=== PATIENT | female | born 1990 | race African-American/Black ===

== ENCOUNTER 2020-04-10 13:35 | Outpatient (RCR) | payer OTHER, SELFPAY | END 2020-07-07 23:59 | disposition home or self-care (01) | LOC: ANHLAB 13:35 | PROVIDERS: Visit Provider Obstetrics & Gynecology | DX: O26.851 Spotting complicating pregnancy, first trimester (principal); Z3A.00 Weeks of gestation of pregnancy not specified | CPT/HCPCS: 36415; 84702; 86850; 86900; 86901 ==

== ENCOUNTER 2020-04-15 15:39 | Outpatient (CLI) | payer OTHER, SELFPAY ==
--- NOTE | ~2020-04-15 | US_ITS ---
EXAMINATION: US OB transvaginal EXAM DATE: 04/15/2020 16:25 INDICATION: Spotting first trimester . 1st trimester. TECHNIQUE: Pelvic obstetrical transvaginal sonogram was performed by a technologist. There are [facility] grayscale and Doppler images available for interpretation. There are no earlier studies of this gestation for comparison. FINDINGS: Uterus measures 9.0 x 4.8 x 5.7 cm. There is intrauterine gestation sac. pole with heart rate confirmed at 157 beats per minute. The 1.1 cm crown-rump length corresponds to estimated gestational age by ultrasound of 7 weeks 1 day, estimated date of confinement 12/01/2020. Yolk sac is identified. There is no sonographic evidence of subchorionic hemorrhage. The ovaries are morphol ogically normal. IMPRESSION: Early live intrauterine gestation, 7 weeks 1 day age by ultrasound. Reviewed, dictated and finalized at location A. [employer] IMPRESSION: Early live intrauterine gestation, 7 weeks 1 day age by ultrasound .
== END 2020-04-15 15:40 ==
PROVIDERS: Visit Provider Obstetrics & Gynecology
DX: O26.851 Spotting complicating pregnancy, first trimester (principal); Z3A.01 Less than 8 weeks gestation of pregnancy
CPT/HCPCS: 76817

== ENCOUNTER 2020-11-12 16:16 | Outpatient (RCR) | payer OTHER, SELFPAY ==
[2020-09-24 15:54] LABS: Basophils Percent Auto 0.2 % (0.2-1.2); Eosinophils Percent Auto 0.2 % (0-4.4); Hematocrit 32.8 % (37.0-47.0); Hemoglobin 10.4 g/dL (12.0-15.0); Immature Granulocyte Absolute 0.09 K/mm3 (0.00-0.031); Immature Granulocyte Percent A 0.8 % (0-0.5); Lymphocytes Absolute Auto 2.48 K/mm3 (0.9-3.2); Lymphocytes Percent Auto 23.3 % (18.3-44.2); Mean Corpuscular HGB Conc 31.7 g/dl (32-36); Mean Corpuscular Hemoglobin 29.5 pg (26-34); Mean Corpuscular Volume 92.9 fl (80-100); Mean Platelet Volume 9.7 fl (7.4-10.4); Monocytes Absolute Auto 0.9 K/mm3 (0.1-0.6); Monocytes Percent Auto 8.3 % (2.6-8.5); Neutrophils Absolute Auto 7.1 K/mm3 (1.3-6.7); Neutrophils Percent Auto 67.2 % (45.5-73.1); Platelet Count Result 331 k/mm3 (150-375); Red Blood Count 3.53 M/mm3 (4.2-5.4); Red Cell Distribution Width 13.1 % (11.5-14.5); White Blood Count 10.6 K/mm3 (4.5-10.0)
[2020-09-24 15:57] LABS: Add Urine Microscopic? YES; Amorphous Sediment Urine Few; Appearance Urine Cloudy (Clear); Bacteria Urine Trace /hpf; Bilirubin Urine Negative (Negative); Blood Urine 1+ (Negative); Color Urine Yellow (Yellow); Glucose Urine UA Negative (Negative); Ketones Urine Negative (Negative); Leukocyte Esterase Ur Negative LEU/UL (NEGATIVE); Mucus Urine Rare /lpf; Nitrate Urine Negative (Negative); Protein Urine 1+ mg/dL (Negative); Specific Grav Ur 1.019 (1.001-1.035); Squamous Epithelial Cell Urine Many /hpf (Few); Urobilinogen Urine Negative mg/dL (<2.0); WBC Urine 0-3 /hpf (0-3)
[2020-09-24 16:02] VITALS: BP 140/86; PULSE 95
[2020-09-24 16:04] LABS: Alanine Aminotransferase 33 U/L (4-35); Albumin Level 3.8 g/dL (3.5-5.1); Alkaline Phosphatase 163 U/L (38-126); Anion Gap 11 mmol/L (8-16); Aspartate Amino Transferase 29 U/L (14-36); Bilirubin,Total 0.3 mg/dL (0.2-1.3); Blood Urea Nitrogen 7 mg/dL (7-17); Calcium 9.7 mg/dL (8.4-10.2); Carbon Dioxide 21 mmol/L (22-30); Chloride 106 mmol/L (98-107); Estimated Glomerular Filt Rate > 60; Glucose 75 mg/dL (65-105); Potassium 3.8 mmol/L (3.4-5.0); Sodium 138 mmol/L (137-145)
[2020-09-24 16:13] LABS: Creatinine Urine 140.1 mg/dL; Total Protein Urine Random 12 mg/dL; Ur Ttl Prot Creatinine Ratio 0.09 mg/mg (0-0.20)
[2020-10-22 16:57] VITALS: BP 132/88; PULSE 88
[2020-10-29 17:20] VITALS: BP 138/95; PULSE 99
[2020-11-05 15:33] VITALS: BP 133/80; PULSE 98
[2020-11-12 16:43] LABS: Basophils Percent Auto 0.3 % (0.2-1.2); Eosinophils Percent Auto 0.1 % (0-4.4); Hematocrit 34.4 % (37.0-47.0); Hemoglobin 11.2 g/dL (12.0-15.0); Immature Granulocyte Absolute 0.08 K/mm3 (0.00-0.031); Immature Granulocyte Percent A 0.7 % (0-0.5); Lymphocytes Absolute Auto 2.44 K/mm3 (0.9-3.2); Lymphocytes Percent Auto 21.9 % (18.3-44.2); Mean Corpuscular HGB Conc 32.6 g/dl (32-36); Mean Corpuscular Hemoglobin 30.5 pg (26-34); Mean Corpuscular Volume 93.7 fl (80-100); Monocytes Absolute Auto 0.8 K/mm3 (0.1-0.6); Monocytes Percent Auto 7.5 % (2.6-8.5); Neutrophils Absolute Auto 7.7 K/mm3 (1.3-6.7); Neutrophils Percent Auto 69.5 % (45.5-73.1); Platelet Count Result 347 k/mm3 (150-375); Red Blood Count 3.67 M/mm3 (4.2-5.4); White Blood Count 11.1 K/mm3 (4.5-10.0)
[2020-11-12 16:53] LABS: Add Urine Microscopic? YES; Appearance Urine Clear (Clear); Bilirubin Urine Negative (Negative); Blood Urine Negative (Negative); Color Urine Yellow (Yellow); Glucose Urine UA Negative (Negative); Ketones Urine Negative (Negative); Leukocyte Esterase Ur Negative LEU/UL (NEGATIVE); Mucus Urine Rare /lpf; Nitrate Urine Negative (Negative); Protein Urine 2+ mg/dL (Negative); RBC Urine 0-2 /hpf (0-2); Specific Grav Ur 1.025 (1.001-1.035); Squamous Epithelial Cell Urine Rare /hpf (Few); Urobilinogen Urine Negative mg/dL (<2.0); WBC Urine 0-3 /hpf (0-3)
[2020-11-12 16:54] LABS: Alanine Aminotransferase 27 U/L (4-35); Albumin Level 3.7 g/dL (3.5-5.1); Alkaline Phosphatase 206 U/L (38-126); Anion Gap 8 mmol/L (8-16); Aspartate Amino Transferase 31 U/L (14-36); Bilirubin,Total 0.3 mg/dL (0.2-1.3); Blood Urea Nitrogen 13 mg/dL (7-17); Calcium 9.8 mg/dL (8.4-10.2); Carbon Dioxide 21 mmol/L (22-30); Chloride 107 mmol/L (98-107); Creatinine Urine 162.1 mg/dL; Estimated Glomerular Filt Rate > 60; Glucose 95 mg/dL (65-110); Sodium 136 mmol/L (137-145); Uric Acid 8.4 mg/dL (2.5-7.5)
[2020-11-12 17:02] LABS: Total Protein Urine Random 278 mg/dL; Ur Ttl Prot Creatinine Ratio 1.71 mg/mg (0-0.20)
[2020-11-12 17:28] VITALS: BP 141/87; PULSE 98
== END 2020-11-15 08:12 | disposition home or self-care (01) ==
LOC: ANHOBOP 16:16
PROVIDERS: Visit Provider Student in an Organized Health Care Education/Training Program
DX: O16.3 Unspecified maternal hypertension, third trimester (principal); Z3A.30 30 weeks gestation of pregnancy; Z3A.34 34 weeks gestation of pregnancy; Z3A.35 35 weeks gestation of pregnancy; Z3A.36 36 weeks gestation of pregnancy; Z3A.37 37 weeks gestation of pregnancy
CPT/HCPCS: 36415; 59025; 80053; 81001; 82570; 84156; 84550; 85025; 87086

== ENCOUNTER 2020-11-13 15:53 | Inpatient (IN) | payer OTHER, SELFPAY ==
[2020-11-13] VITALS (29 sets, daily range): BP systolic 122–161; BP diastolic 63–104; PULSE 87–112; RESP 20; TEMP 36.8–36.9; BMI 47.7
--- NOTE | 2020-11-13 15:53 | LDADM ---
This patient, Tia Barth, was admitted to Labor/Delivery/Recovery 103 on 11/13/20 at 15:53. Plans for labor, pain management and were discussed with patient. Patient/family oriented to hospital policies and general routines including ID bracelet, bed and alarms, visiting hours, pain management, procedures, bathroom and other care routines, personal items, smoking policy, room service/diet and guest tray routines, infant security routines, and visiting hours. Patient/Family are encouraged to report perceived risks to care and to ask questions if they do not understand what they are told or what they should do. See OBIX for further documentation.
[2020-11-13 16:49] LABS: Basophils Percent Auto 0.2 % (0.2-1.2); Eosinophils Percent Auto 0.1 % (0-4.4); Hematocrit 36.3 % (37.0-47.0); Hemoglobin 11.9 g/dL (12.0-15.0); Immature Granulocyte Absolute 0.08 K/mm3 (0.00-0.031); Immature Granulocyte Percent A 0.9 % (0-0.5); Lymphocytes Absolute Auto 2.32 K/mm3 (0.9-3.2); Lymphocytes Percent Auto 25.4 % (18.3-44.2); Mean Corpuscular HGB Conc 32.8 g/dl (32-36); Mean Corpuscular Hemoglobin 30.4 pg (26-34); Mean Corpuscular Volume 92.8 fl (80-100); Monocytes Absolute Auto 0.7 K/mm3 (0.1-0.6); Monocytes Percent Auto 7.1 % (2.6-8.5); Neutrophils Absolute Auto 6.1 K/mm3 (1.3-6.7); Neutrophils Percent Auto 66.3 % (45.5-73.1); Platelet Count Result 364 k/mm3 (150-375); Red Blood Count 3.91 M/mm3 (4.2-5.4); Red Cell Distribution Width 12.2 % (11.5-14.5); White Blood Count 9.1 K/mm3 (4.5-10.0)
[2020-11-13] MEDS: AMPICILLIN 2 GM/NS 100 ML 2 GM/100 ML BAG IVPB (17:10)
[2020-11-13] MEDS: LACTATED RINGERS 1,000 ML 125 ML IV CONT (17:10)
[2020-11-13 17:11] LABS: Uric Acid 8.6 mg/dL (2.5-7.5)
[2020-11-13 17:18] LABS: Alanine Aminotransferase 30 U/L (4-35); Albumin Level 4.1 g/dL (3.5-5.1); Alkaline Phosphatase 235 U/L (38-126); Anion Gap 7 mmol/L (8-16); Aspartate Amino Transferase 47 U/L (14-36); Bilirubin,Total 0.6 mg/dL (0.2-1.3); Blood Urea Nitrogen 13 mg/dL (7-17); Calcium 9.9 mg/dL (8.4-10.2); Carbon Dioxide 20 mmol/L (22-30); Chloride 110 mmol/L (98-107); Estimated Glomerular Filt Rate > 60; Glucose 68 mg/dL (65-110); Potassium 4.8 mmol/L (3.4-5.0); Sodium 137 mmol/L (137-145)
--- NOTE | 2020-11-13 17:27 | WPDHPUPDATE1 ---
History and Physical Update Update Date/Time: 11/13/20 17:27 30 yo at 38w0d who presents for IOL for preeclampsia. Pt had GHTN that progressed to superimposed preeclampsia without severe features. Pt endorses good movement. She denies any regular contractions, vaginal bleeding or leakage of fluid. The remainder of her has been uncomplicated. History and Physical has been reviewed, including an updated exam of the patient. There are NO changes in the patient's condition. Risks, benefits, and alternatives have been discussed and questions answered. Patient agrees to proceed with procedure. A/P: 30 yo at 38w0d with Preeclampsia admit to L&D routine admission orders Rh+ GBS +, will give PCN in labor UPCR 1.7 ruling her in for Preeclampsia BP mild range today will treat for severe range BP and consider magnesium as necessary cytotec IOL FHT cat 1 continuous EFM
[2020-11-13] MEDS: miSOPROStol 25 MCG TABLET VAGINAL ×2 (17:30→21:44)
[2020-11-13] MEDS: LABETALOL HCL 100 MG TABLET 200 MG PO (19:24)
[2020-11-13] MEDS: AMPICILLIN 1 GM/NS 50 ML 1 GM/50 ML BAG IVPB (23:37)
[2020-11-14] VITALS (211 sets, daily range): BP systolic 111–194; BP diastolic 65–136; PULSE 72–300; RESP 14–20; TEMP 36.5–37.1; O2SAT 92–100
[2020-11-14] MEDS: miSOPROStol 25 MCG TABLET VAGINAL ×2 (01:52→06:14)
[2020-11-14] MEDS: AMPICILLIN 1 GM/NS 50 ML 1 GM/50 ML BAG IVPB ×4 (03:37→15:38)
[2020-11-14] MEDS: fentaNYL CITRATE INJ (*CRX) 100 MCG/2 ML VIAL 50 MCG IV PUSH ×2 (09:18→09:54)
[2020-11-14 09:29] LABS: Rapid Plasma Reagin Non-Reactive (NonReactive)
[2020-11-14] MEDS: LACTATED RINGERS 1,000 ML 125 ML IV CONT ×2 (11:02→16:58)
[2020-11-14] MEDS: OXYTOCIN 30 UNITS/NS 500 ML 30 UNITS/500 ML BAG IV CONT (11:05)
[2020-11-14] MEDS: SODIUM CHLORIDE 0.9% IV 300 ML 600 ML I-UTERINE (15:04)
[2020-11-14] MEDS: SODIUM CHLORIDE 0.9% IV 1,000 ML 150 ML I-UTERINE (15:39)
--- NOTE | 2020-11-14 20:32 | PM.OBPRVD ---
OB - Delivery Note Procedure Procedure: Patient pushed for a spontaneous vaginal delivery. A nuchal cord x1 was noted and delivered through. The fetus was delivered atraumatically and placed on the maternal abdomen. The cord was clamped and cut after 1 minute of life. The cord was double clamped and cut and a segment of cord was collected for cord gases. Cord blood was collected for blood type and Coomb's testing. The placenta delivered spontaneously and was noted to be intact. The perineum was inspected and there was a 1st degree perineal laceration and right labial laceration. The lacerations were repaired with 3-0 vicryl in the usual fashion. The uterus was firm and good hemostasis was noted. The patient and fetus were stable in the delivery room. events: Pre-Eclampsia Intrapartal events: None Induction method: per misoprostol protocol Delivery augmentation: pitocin Delivery monitor: external FHT Route of delivery: Episiotomy description: None Laceration Description: Perineal - 1st Degree and Labial (right) Delivery repair: vicryl Specimen: No Quantitative Blood Loss (ml): 250 Anesthesia type: Epidural Disposition: floor () Complications: No immediate complications Baby Date of : 11/14/20 Time of : 20:04 Weeks of gestation at delivery: 38 Infant gender: Male Weight (pounds): 5 Weight (ounces): 13 presentation: vertex position: Right Occiput Anterior Placenta delivery description: Spontaneous cord vessel description: Nuchal Cord score one minute: 9 score five minutes: 9
[2020-11-14] MEDS: OXYTOCIN 30 UNITS/NS 500 ML 30 UNITS/500 ML BAG 125 UNITS IV CONT (20:40)
[2020-11-14] MEDS: BENZOCAINE 20% AER SPR (*SP) 56 GM CAN 1 SPRAY TOPICAL (22:09)
[2020-11-14] MEDS: WITCH HAZEL 40 PADS 1 PAD TOPICAL (22:09)
[2020-11-14] MEDS: IBUPROFEN 600 MG TABLET PO (22:09)
[2020-11-15] VITALS (7 sets, daily range): BP systolic 135–145; BP diastolic 89–99; PULSE 74–93; RESP 15–18; TEMP 36.1–36.8; O2SAT 99–100
[2020-11-15 05:44] LABS: Hematocrit 30.4 % (37.0-47.0)
[2020-11-15] MEDS: DOCUSATE SODIUM 100 MG CAPSULE PO ×2 (09:46→15:35)
[2020-11-15] MEDS: MULTIVIT/MIN/PREN/FOL AC/IRON TABLET 1 TAB PO (09:46)
[2020-11-15] MEDS: PANTOPRAZOLE 40 MG TABLET PO (09:46)
[2020-11-15] MEDS: POLYSACCHARIDE IRON COMPLEX 150 MG CAPSULE PO (09:46)
--- NOTE | 2020-11-15 10:32 | WPDANLDPN2 ---
Anes-Prog Note L&D Date/Time: 11/15/20 10:32 Comfortable throughout: labor and delivery Neuraxial method: epidural Epidural/Spinal procedure site: clean & non-tender Neuro status: Neuro function grossly intact. Cardiovascular status: normal Respiratory status: normal Airway patency: baseline Mental status: baseline Post-Op hydration status: normal Vital Signs: Last Vital Signs Temp 97.5 F L 11/15/20 07:30 Pulse 86 11/15/20 07:30 Resp 18 11/15/20 07:30 BP 135/89 11/15/20 07:30 Pulse Ox 99 11/15/20 07:30 Pain score (VAS): 0/10 I/O: Intake & Output 11/14/20 11/15/20 11/15/20 23:59 07:59 15:59 Intake Total 1000 Output Total 293 Balance 707 Post-procedural complaints: none Patient feedback: Patient satisfied with anesthetic care.
--- NOTE | 2020-11-15 11:45 | PC.NURSE ---
Mother called out for assist with feeding, reporting difficulties with latching. Mother is large breasted and has difficulties with positioning infant. Assisted with pillows and roll under breast to bring nipple up. Infant is able to freely thrust tongue past gum ridge and flange both lips. Skin is intact on both nipples, no redness and bruising noted. Reviewed infant feeding cues, frequencies, duration of feedings, feeding elimination flow sheet, and signs of adequate intake. Demonstrated stimulation techniques to wake for feeding. Assisted with to breast. Reviewed positioning/alignment in football, holding breast in ?C? hold and guided asymmetrical latch on. Discussed rational for each. Infant able to latch correctly. Infant nursed eagerly, with steady draws and frequent swallowing noted. Suggested mother stimulate while feeding to increase stimulation, increase intake and to assist with maintaining deep latch. Reviewed signs of a correct latch, effective nursing and suck swallow ratio. Infant would slip to shallow latch, mother reports tenderness. Demonstrated how to adjust latch more deeply while feeding. Mother reports she can feel change in latch and has no tenderness. Nipple care reviewed of lanolin after feedings, warm compresses as needed. Instructed mother to call out for RN assistance if she is unable to latch infant for feeding or she has discomfort with nursing.
--- NOTE | 2020-11-15 12:40 | PM.OBPNVD ---
OB - PN: Subj Subjective Date/time seen: 11/15/20 12:40 Narrative: Pain OK. Would like circumcision for son. OB - PN: Obj Data Labs CBC & Chem 7: 11/15/20 05:35 11/13/20 16:42 Labs: Laboratory Results - last 24 hr 11/15/20 05:35 Hgb 10.0 L Hct 30.4 L OB - PN A/P Plan Comments: A: PPD#1, doing well. P: Routine care. Reviewed circ. Exam Psych: Other: AVSS ABD soft, nontender, fundus firm EXT nontender
[2020-11-15] MEDS: ACETAMINOPHEN 325 MG TABLET 650 MG PO (15:35)
[2020-11-16 00:04] VITALS: BP 140/95; PULSE 95
[2020-11-16] MEDS: ACETAMINOPHEN 325 MG TABLET 650 MG PO (01:54)
[2020-11-16 04:03] VITALS: BP 143/96
[2020-11-16] MEDS: IBUPROFEN 600 MG TABLET PO (08:36)
[2020-11-16] MEDS: MULTIVIT/MIN/PREN/FOL AC/IRON TABLET 1 TAB PO (08:36)
[2020-11-16] MEDS: DOCUSATE SODIUM 100 MG CAPSULE PO (08:36)
[2020-11-16 10:00] VITALS: BP 131/86; PULSE 97; RESP 18; TEMP 36.3; O2SAT 100
--- NOTE | 2020-11-16 10:16 | PM.OBPNVD ---
OB - PN: Subj Subjective Date/time seen: 11/16/20 10:16 Narrative: Pain OK. Would like to go home. OB - PN: Obj Data Labs CBC & Chem 7: 11/15/20 05:35 11/13/20 16:42 OB - PN A/P Plan Comments: A: PPD#2, doing well. P: Home to f/u 6 weeks. Exam Psych: Other: AVSS ABD soft, nontender, fundus firm EXT nontender
[2020-11-16 13:10] VITALS: BP 139/96; PULSE 95; RESP 18; TEMP 36.3; O2SAT 100
--- NOTE | 2020-11-16 15:19 | PC.NURSE ---
0836 Patient was given the opportunity to view the discharge video Mother & Baby Care, The First Two Weeks and to ask questions. Patient declined viewing the video and has been given the mother/baby guide for home reference.
[2020-11-18 10:46] VITALS: BP 136/93; PULSE 88; RESP 20; TEMP 37.2; O2SAT 99
--- NOTE | 2020-11-26 13:01 | PM.OBDSVD ---
DS: Admitting Diagnosis Admitting Diagnosis IUP at 38 weeks Preeclampsia DS: Discharge Diagnosis Discharge Diagnosis (1) (normal spontaneous vaginal delivery): Code(s): O80 - Encounter for full-term uncomplicated delivery Status: Acute (2) Preeclampsia: Code(s): O14.90 - Unspecified pre-eclampsia, unspecified trimester Status: Acute OB - DS: Summary OB Procedures : None OB Procedures Intrapartum: Spontaneous Vag Delivery OB Procedures: : None DS: Data Data Completed and Pending Completed studies during hospitalization: Pending at discharge 11/14/20 21:10 Surgical [PTH] Routine Discharge Plan Discharge Attending physician on discharge: Juliano Barillas Discharging Clinician: Jimmie Chacon Patient Disposition: Home, Self-Care Activity: pelvic rest Diet: regular Discharge Instructions: Education: Mom and Baby Guide Given to: Mother Follow-Up: Call your delivering provider's office for an appointment to be seen in: 6 Weeks Mom and baby should come to the [facility] for the follow-up appointment. Appointment Date/Time: Wednesday, November 18, 2020 at 11:00 am Call [phone] if you are unable to keep your appointment time. BREAST CARE: * Wear a snug supportive bra. * For engorgement discomfort: Breast Feeding: * Apply warm moist washcloths * Express milk as needed to relieve engorgement * Wear loose clothing Bottle Feeding: * May apply ice packs * For sore nipples: * Identify correct latch-on * Apply warm moist washcloths before and after nursing * Air dry nipples after nursing * May apply Lansinoh cream to nipples EPISIOTOMY/PERINEAL CARE: * Until bleeding stops, use your geoffrey bottle after urinating * Change your pad frequently throughout the day * You may take sitz baths several times a day (fill your bathtub with warm water and soak for 20 minutes.) Do NOT bathe in the water * No tub baths until seen by your physician - You may shower ACTIVITY: * Rest as much as possible. * Do not exercise or lift anything heavier than your baby (such as laundry or other children.) * Avoid stairs or driving as much as possible. * Do not put anything into the vagina. No douching, tampons, or sexual activity until seen by physician. NOTIFY PHYSICIAN IF YOU HAVE ANY QUESTIONS OR IF ANY OF THE FOLLOWING SYMPTOMS OCCUR: * If your episiotomy or incision becomes red, swollen, or more painful than what you have experienced in the hospital. * If your vaginal bleeding becomes foul smelling. * If your vaginal bleeding becomes more heavy than a period or if your bleeding changes from pink to bright red. However, you may pass an occasional walnut-sized clot once or twice for the first week . * If you experience a sharp, shooting pain in you calves. * If you discover a hard, reddened area on your breast or if you experience flu-like symptoms. DIET: * Eat regular, well-balanced meals. * Drink plenty of fluids daily. If , drink to thirst. Per Dr. Chacon, Call or return if temperature above 100.4? F, increased abdominal pain, increased vaginal bleeding or any new problems. Patient Instructions: Antibiotic Form Follow-up/Referrals: Juliano Barillas MD [Physician] - 6 Weeks Discharge Medications: New ibuprofen 600 mg tablet 600 mg PO Q6H PRN (Reason: cramps) Qty: 30 RF: 0 Continued PNV cmb#95-ferrous fumarate-FA [] 28 mg iron- 800 mcg Tablet 1 tablet PO DAILY RF: 0 Discontinued omeprazole 40 mg Capsule,Delayed Release(Dr/Ec) 40 mg PO DAILY RF: 0 ferrous sulfate 325 mg (65 mg iron) Tablet 325 mg PO DAILY RF: 0 Date of admission: 11/13/20 15:53 Primary Care Provider: PHYSICIAN,[employer] Admitting Provider: Juliano Barillas Attending physician on admission:
== END 2020-11-16 13:45 | disposition home or self-care (01) | DRG 807 ==
LOC: ANHLDR 11-14 18:22 → ANHOB2 11-15 08:14 → ANHLDR 11-18 12:46 → ANHOB2 11-18 12:46
PROVIDERS: Admitting Provider Student in an Organized Health Care Education/Training Program; Visit Provider Obstetrics & Gynecology
DX: O13.4 Gestational [pregnancy-induced] hypertension without significant proteinuria, complicating childbirth (principal); Z37.0 Single live birth; O14.04 Mild to moderate pre-eclampsia, complicating childbirth; O99.824 Streptococcus B carrier state complicating childbirth; O69.81X0 Labor and delivery complicated by cord around neck, without compression, not applicable or unspecified; O70.0 First degree perineal laceration during delivery; O76 Abnormality in fetal heart rate and rhythm complicating labor and delivery; Z3A.38 38 weeks gestation of pregnancy
CPT/HCPCS: 36415; 80053; 84550; 85014; 85018; 85025; 86592; 86850; 86900; 86901; 88307; A9270; J0290; J2590; J3010; J7030; J7120

== ENCOUNTER 2020-11-22 10:00 | Outpatient (RCR) | payer OTHER, SELFPAY ==
--- NOTE | 2020-11-22 11:00 | PC.NURSE ---
Addendum entered by Taina Wen RN 11/25/20 11:47: weight and last weight are incorrect Original Note: IN 1000 OUT 1050 HISTORY: Pt. delivered at [facility] at 38 weeks. Infant had no complications after delivery. Mother had no complications after delivery. is now 8 days old. Infant appears to be well cared for. has been seen by ICP as scheduled. last seen by ICP at 1 week.. Mother reports: Currently at 6 wets per day and 1 yellow seedy stools per day. Mother had issued with latch since . Mother states she required assist with latch each feeding and was supplementing while in the hospital. Once home mother was unable to latch infant. She began with supplementation. LC assisted mother at follow up visit and she was able to latch infant a few times after, was fussy and refused to latch after. Mother has been bottle feeding 2 oz per feeding every 3 hours of 50/50 EBM/formula. Mother is now pumping 1 oz after all feedings using a double electric Medela. Mother denies difficulties or discomfort with pumping. Mother wishes: To return to breast for part/all of feeding. OBSERVATION: weight: 9#14 Discharge weight: Last Weight: 10#4 Tongue is able to move freely past gum ridge, both lips flange easily. Mother has everted nipples with skin intact no redness, blisters, scabbing or abrasions noted. Reviewed positioning/alignment in cross cradle, holding breast in U hold and guided asymmetrical latch on. Infant was unable to latch correctly, he could not grasp onto nipple and draw it in. Several attempts within 10-15 minutes, using both cradle and football. Mother has large breasts, assisted with positioning and breast rolls to accommodate her to bring nipple upward with correct alignment for infant. Suggested using the nipple shield. Nipple shield provided to mother due to flat nipples. Instructions given on application and cleaning of shield. Discussed nipple shield precautions and possible complications. Patient able to return demonstration on proper application of shield. Discussed the need continue regular pumping until infant is able to gain weight and empty breast if infant continues to nurse with the shield. Patient verbalizes understanding. With shield in place, was able to latch correctly within a few attempts. Infant nursed eagerly with steady draws and occasional swallowing for short bursts. enticed with formula to continue to suckling. Advised to stimulate to keep wake and nursing. noted. Reviewed signs of a correct latch, effective nursing and suck swallow ratio. was able to maintain latch without discomfort to mother, with minimal suckling noted. Suggested mother use breast compressions to keep milk flowing to entice to suckle. would have short bursts of suckling then return to sleep. Demonstrated how to adjust latch more deeply while feeding if needed. Mother was able to switch infant to other breast independently. PLAN: Mother put infant to breast each feeding using the nipple shield, she will then continue to supplement as much as infant desires and will pump for 15 minutes. Suggested mother allow to feed one breast for the next several feedings before allow to feed at both breasts. Discussed plan is for to stimulate more milk supply with increased nursing. Mother may see infant will take less by bottle, he need to continue at current output. Suggested mother not discontinue supplement until next appointment, with ICP or LC, for infant to have a pre/post feeding evaluation. Mother will call with further questions or concerns. Follow up phone call scheduled for 11/26/2020. I
== END 2020-12-31 13:29 | disposition home or self-care (01) ==
LOC: ANHOBOP 10:00
PROVIDERS: Visit Provider Pediatrics
DX: Z39.1 Encounter for care and examination of lactating mother (principal)
CPT/HCPCS: 99212; G0463

== ENCOUNTER 2022-07-26 09:00 | Observation (INO) | payer OTHER, SELFPAY ==
[2022-07-26 09:26] VITALS: BP 133/82; PULSE 116
[2022-07-26 09:27] VITALS: TEMP 37.8
[2022-07-26 09:31] VITALS: BP 123/79; PULSE 116
[2022-07-26] MEDS: LACTATED RINGERS 1,000 ML 999 ML IV CONT (10:00)
[2022-07-26] MEDS: FAMOTIDINE 20 MG/2 ML VIAL IV PUSH (10:01)
[2022-07-26] MEDS: ONDANSETRON INJ 4 MG/2 ML VIAL IV PUSH (10:01)
[2022-07-26 10:10] LABS: Basophils Percent Auto 0.2 % (0.2-1.2); Hematocrit 34.5 % (37.0-47.0); Hemoglobin 11.2 g/dL (12.0-15.0); Immature Granulocyte Absolute 0.11 K/mm3 (0.00-0.031); Immature Granulocyte Percent A 1.1 % (0-0.5); Lymphocytes Absolute Auto 0.82 K/mm3 (0.9-3.2); Lymphocytes Percent Auto 8.4 % (18.3-44.2); Mean Corpuscular HGB Conc 32.5 g/dl (32-36); Mean Corpuscular Hemoglobin 29.8 pg (26-34); Mean Corpuscular Volume 91.8 fl (80-100); Mean Platelet Volume 9.4 fl (7.4-10.4); Monocytes Absolute Auto 0.8 K/mm3 (0.1-0.6); Neutrophils Absolute Auto 8.1 K/mm3 (1.3-6.7); Neutrophils Percent Auto 82.3 % (45.5-73.1); Platelet Count Result 297 k/mm3 (150-375); Red Blood Count 3.76 M/mm3 (4.2-5.4); White Blood Count 9.8 K/mm3 (4.5-10.0)
[2022-07-26 10:14] VITALS: BP 127/79; PULSE 112
[2022-07-26 10:16] LABS: Appearance Urine Cloudy (Clear); Bacteria Urine None Seen /hpf; Bilirubin Urine 2+ (Negative); Blood Urine 3+ (Negative); Color Urine Dark Yellow (Yellow); Glucose Urine UA Negative (Negative); Ketones Urine 2+ mg/dL (Negative); Leukocyte Esterase Ur 2+ LEU/UL (Negative); Mucus Urine Present /lpf; Nitrate Urine Negative (Negative); Protein Urine 3+ mg/dL (Negative); RBC Urine 21-50 /hpf (0-2); Specific Grav Ur 1.024 (1.001-1.035); Squamous Epithelial Cell Urine Many /hpf (Few); WBC Urine 51-100 /hpf
[2022-07-26 10:17] LABS: Add Urine Microscopic? YES
[2022-07-26 10:20] VITALS: TEMP 37.4
[2022-07-26 10:22] LABS: Alanine Aminotransferase 35 U/L (6-35); Albumin Level 3.8 g/dL (3.5-5.1); Alkaline Phosphatase 118 U/L (38-126); Anion Gap 9 mmol/L (8-16); Aspartate Amino Transferase 38 U/L (14-36); Bilirubin,Total 0.9 mg/dL (0.2-1.3); Blood Urea Nitrogen 9 mg/dL (7-17); Calcium 8.3 mg/dL (8.4-10.2); Carbon Dioxide 20 mmol/L (22-30); Chloride 103 mmol/L (98-107); Estimated Glomerular Filt Rate > 60; Glucose 100 mg/dL (65-110); Sodium 132 mmol/L (137-145)
--- NOTE | 2022-07-26 10:42 | OBADM ---
This patient, Tia Barth, admitted to the OB room OB Post 116 for observation. Patient/family oriented to hospital policies and general routines including ID bracelet, bed and alarms, visiting hours, pain management, procedures, bathroom and other care routines, personal items, smoking policy, room service/diet, and visiting hours. Patient/Family are encouraged to report perceived risks to care and to ask questions if they do not understand what they are told or what they should do.
[2022-07-26 11:01] VITALS: BP 126/63; PULSE 108
[2022-07-26] MEDS: NITROFURANTOIN MONOHYD MACROCR 100 MG CAP PO (11:30)
--- NOTE | 2022-08-04 08:08 | PM.OBTRLD ---
OB - Triage/Final Diagnosis Visit Information Comments/Additional reasons for admission: I have assessed the risk for this patient, Tia Barth, and determined that she would benefit from observation care. Evaluation Laboratory results: Laboratory Tests 07/26/22 07/26/22 07/26/22 09:26 10:04 10:04 WBC 9.8 RBC 3.76 L Hgb 11.2 L Hct 34.5 L MCV 91.8 MCH 29.8 MCHC 32.5 RDW 12.0 Plt Count 297 MPV 9.4 Immature Gran % (Auto) 1.1 H Neut % (Auto) 82.3 H Lymph % (Auto) 8.4 L [place] % (Auto) 8.0 Eos % (Auto) 0.0 Baso % (Auto) 0.2 Lymph # (Auto) 0.82 L [place] # (Auto) 0.8 H Eos # (Auto) 0.0 Baso # (Auto) 0.0 Abs Immat Gran (auto) 0.11 H Absolute Neuts (auto) 8.1 H Absolute Nucleated RBC 0.0 Nucleated RBC % 0.0 Sodium 132 L Potassium 4.0 Chloride 103 Carbon Dioxide 20 L Anion Gap 9 BUN 9 Creatinine 0.50 L Estim Creat Clear Calc Not Reportable Estimated GFR > 60 Glucose 100 Calcium 8.3 L Total Bilirubin 0.9 AST 38 H ALT 35 Alkaline Phosphatase 118 Total Protein 7.0 Albumin 3.8 Urine Color Dark yellow Urine Appearance Cloudy H Urine pH 6.0 Ur Specific [place] 1.024 Urine Protein 3+ H Urine Glucose (UA) Negative Urine Ketones 2+ H Ur Blood (Man) 3+ H Urine Nitrate Negative Urine Bilirubin 2+ H Urine Urobilinogen 2.0 H Leukocyte Esterase Rfl 2+ H Urine RBC 21-50 H Urine WBC 51-100 H Ur Squamous Epith Cells Many H Urine Bacteria None seen Urine Casts 11-20 Urine Mucus Present Final Diagnosis (1) Urinary tract infection: Code(s): N39.0 - Urinary tract infection, site not specified Status: Acute
== END 2022-07-26 15:40 | disposition home or self-care (01) ==
PROVIDERS: Advanced Practice Midwife; Admitting Provider Obstetrics & Gynecology; Visit Provider Obstetrics & Gynecology
DX: O23.42 Unspecified infection of urinary tract in pregnancy, second trimester (principal); N39.0 Urinary tract infection, site not specified; Z3A.21 21 weeks gestation of pregnancy
CPT/HCPCS: 36415; 80053; 81001; 85025; 87086; A9270; G0378; G0379; J2405; J7120

== ENCOUNTER 2022-07-28 08:15 | Observation (INO) | payer OTHER, SELFPAY ==
[2022-07-28] VITALS (59 sets, daily range): BP systolic 125–146; BP diastolic 75–87; PULSE 106–119; TEMP 36.4–36.8; O2SAT 95–100; BMI 50.3
--- NOTE | ~2022-07-28 | US_ITS ---
Pelvic ultrasound. Clinical History: Back pain, second trimester . Estimated gestational age is 22 weeks 0 days . Technique: Realtime transabdominal and transvaginal scanning of the pelvis was performed. Color flow Doppler and Doppler spectral analysis were performed. Findings: The uterus is anteverted, and contains an intrauterine gestation. Placenta is located poste riorly towards the fundus. Cervix is closed, measuring 4.9 cm in length. heart rate is 187 bpm. Deepest pocket of amniotic fluid measures 3.4 cm. Neither ovary visualized. No adnexal mass seen. There is no evidence of free fluid in the cul de sac. Impression: Live intrauterine gestation, with heart rate of 187 bpm. Amniotic fluid index measurement typically begins at a gestational age of 24 weeks. Measured WARNER over all in this case is 7.3, and amount of amniotic fluid appears grossly within normal limits qualitativ erum. Reviewed, dictated and finalized at [facility]. Impression: Live intrauterine gestation, with heart rate of 187 bpm. Amniotic fluid index measurement typically begins at a gestational age of 24 we eks. Measured WARNER overall in this case is 7.3, and amount of amniotic fluid romulo ears grossly within normal limits qualitatively.
--- NOTE | ~2022-07-28 | US_ITS ---
Renal-Bladder ultrasound Clinical History: Back pain Technique: Real-time sonographic imaging of the kidneys and urinary bladder was performed. Findings: The right kidney measures 13.6 cm in length and the left kidney measures 13.2 cm. There is no hydronephrosis or renal calculus identified. Renal cortical echogenicity is within normal limits. No renal mass lesion is identified. The urinary bladder is moderately distended at the time of this exam. No intraluminal echoes are iden tified. No abnormal wall thickening is seen. Impression: Unremarkable ultrasound of the kidneys and urinary bladder. Reviewed, dictated and finalized at location . Impression: Unremarkable ultrasound of the kidneys and urinary bladder.
[2022-07-28 09:08] LABS: Basophils Percent Auto 0.4 % (0.2-1.2); Hemoglobin 11.4 g/dL (12.0-15.0); Immature Granulocyte Absolute 0.19 K/mm3 (0.00-0.031); Immature Granulocyte Percent A 1.8 % (0-0.5); Lymphocytes Absolute Auto 1.29 K/mm3 (0.9-3.2); Lymphocytes Percent Auto 12.4 % (18.3-44.2); Mean Corpuscular HGB Conc 33.5 g/dl (32-36); Mean Corpuscular Hemoglobin 29.7 pg (26-34); Mean Corpuscular Volume 88.5 fl (80-100); Mean Platelet Volume 9.6 fl (7.4-10.4); Monocytes Absolute Auto 0.5 K/mm3 (0.1-0.6); Monocytes Percent Auto 4.4 % (2.6-8.5); Neutrophils Absolute Auto 8.4 K/mm3 (1.3-6.7); Platelet Count Result 293 k/mm3 (150-375); Red Blood Count 3.84 M/mm3 (4.2-5.4); Red Cell Distribution Width 11.9 % (11.5-14.5); White Blood Count 10.4 K/mm3 (4.5-10.0)
[2022-07-28] MEDS: LACTATED RINGERS 1,000 ML 125 ML IV CONT ×2 (09:14→10:19)
[2022-07-28 09:17] LABS: Appearance Urine Turbid (Clear); Bacteria Urine None Seen /hpf; Bilirubin Urine 2+ (Negative); Blood Urine 3+ (Negative); Color Urine Orange (Yellow); Glucose Urine UA Negative (Negative); Ketones Urine 2+ mg/dL (Negative); Leukocyte Esterase Ur 2+ LEU/UL (Negative); Nitrate Urine Positive (Negative); Non Pathogenic Casts 0-2; Protein Urine 3+ mg/dL (Negative); RBC Urine >100 /hpf (0-2); Specific Grav Ur 1.026 (1.001-1.035); Squamous Epithelial Cell Urine Few /hpf (Few); WBC Urine 21-50 /hpf
[2022-07-28] MEDS: ONDANSETRON INJ 4 MG/2 ML VIAL IV PUSH (09:17)
[2022-07-28 09:19] LABS: Alanine Aminotransferase 36 U/L (6-35); Alkaline Phosphatase 127 U/L (38-126); Anion Gap 11 mmol/L (8-16); Aspartate Amino Transferase 54 U/L (14-36); Bilirubin,Total 1.8 mg/dL (0.2-1.3); Blood Urea Nitrogen 9 mg/dL (7-17); Calcium 8.8 mg/dL (8.4-10.2); Carbon Dioxide 19 mmol/L (22-30); Chloride 102 mmol/L (98-107); Estimated CRCL calculation 175 ml/min; Estimated Glomerular Filt Rate > 60; Glucose 111 mg/dL (65-110); Potassium 3.8 mmol/L (3.4-5.0); Sodium 132 mmol/L (137-145); Uric Acid 5.3 mg/dL (2.5-7.5)
[2022-07-28] MEDS: fentaNYL CITRATE INJ (*CRX) 100 MCG/2 ML VIAL 50 MCG IV PUSH (09:32)
[2022-07-28 09:43] LABS: Add Urine Microscopic? YES
--- NOTE | 2022-07-28 09:58 | PC.NURSE ---
[id number] intermittent FHR signal related to gestational age. FHR baseline of 190 with moderate variability and 10x10 accelerations are present. No contractions per patient or toco.
--- NOTE | 2022-07-28 10:53 | PC.NURSE ---
Addendum entered by OPHELIA Powell 07/28/22 11:28: 1053- Reported results of renal ultrasound as well as OB ultrasound and labs. CNM consulting MD on further action and to return call. Original Note: 1053- Called CNM, waiting for callback
--- NOTE | 2022-07-28 12:13 | PC.NURSE ---
Spoke with CNM via telephone at 1212. Orders to strain urine as well as PO pain meds. Regular diet order placed. Patient has instructions to order food to see if she can tolerate PO nutrition.
[2022-07-28] MEDS: HYDROcodone/acetaminophen (*CRX) 5-325 MG TABLET 1 TAB PO (12:46)
--- NOTE | 2022-07-28 13:23 | PC.NURSE ---
Urine strained at 1300. [place] color noted but no sediment. 175mL output.
--- NOTE | 2022-07-28 14:33 | PC.NURSE ---
Spoke with CNM via telephone at 1430. Discussed patient status as well as efficacy of PO pain meds. Patient to eat lunch and reevaluate maternal status.
--- NOTE | 2022-07-28 14:46 | PC.NURSE ---
Urine strained. No sediment noted in strainer.
--- NOTE | 2022-07-28 14:52 | PC.NURSE ---
Patient ate 50% of her lunch.
--- NOTE | 2022-08-10 07:54 | PM.OBTRLD ---
OB - Triage/Final Diagnosis Visit Information Comments/Additional reasons for admission: I have assessed the risk for this patient, Tia Barth, and determined that she would benefit from observation care. Evaluation Laboratory results: Laboratory Tests 07/28/22 07/28/22 08:41 08:42 WBC 10.4 H RBC 3.84 L Hgb 11.4 L Hct 34.0 L MCV 88.5 MCH 29.7 MCHC 33.5 RDW 11.9 Plt Count 293 MPV 9.6 Immature Gran % (Auto) 1.8 H Neut % (Auto) 81.0 H Lymph % (Auto) 12.4 L [place] % (Auto) 4.4 Eos % (Auto) 0.0 Baso % (Auto) 0.4 Lymph # (Auto) 1.29 [place] # (Auto) 0.5 Eos # (Auto) 0.0 Baso # (Auto) 0.0 Abs Immat Gran (auto) 0.19 H Absolute Neuts (auto) 8.4 H Absolute Nucleated RBC 0.0 Nucleated RBC % 0.0 Sodium 132 L Potassium 3.8 Chloride 102 Carbon Dioxide 19 L Anion Gap 11 BUN 9 Creatinine 0.50 L Estim Creat Clear Calc 175 Estimated GFR > 60 Glucose 111 H Uric Acid 5.3 Calcium 8.8 Total Bilirubin 1.8 H AST 54 H ALT 36 H Alkaline Phosphatase 127 H Total Protein 7.0 Albumin 4.0 Urine Color [place] H Urine Appearance Turbid H Urine pH 6.0 Ur Specific [place] 1.026 Urine Protein 3+ H Urine Glucose (UA) Negative Urine Ketones 2+ H Ur Blood (Man) 3+ H Urine Nitrate Positive H Urine Bilirubin 2+ H Urine Urobilinogen 1.0 Leukocyte Esterase Rfl 2+ H Urine RBC >100 H Urine WBC 21-50 H Ur Squamous Epith Cells Few Urine Bacteria None seen Urine Casts 0-2 Final Diagnosis (1) Back pain: Code(s): M54.9 - Dorsalgia, unspecified Status: Acute (2) Kidney stone complicating : Code(s): O26.839 - related renal disease, unspecified trimester; N20.0 - Calculus of kidney Status: Acute
== END 2022-07-28 16:08 | disposition home or self-care (01) ==
PROVIDERS: Admitting Provider Obstetrics & Gynecology; Referring Provider Advanced Practice Midwife; Visit Provider Obstetrics & Gynecology
DX: O26.839 Pregnancy related renal disease, unspecified trimester (principal); O26.899 Other specified pregnancy related conditions, unspecified trimester; M54.9 Dorsalgia, unspecified; Z3A.00 Weeks of gestation of pregnancy not specified
CPT/HCPCS: 36415; 76775; 76815; 80053; 81001; 84550; 85025; 87086; 87088; 87147; 96361; 96374; 96375; A9270; G0378; G0379; J2405; J3010; J7120

== ENCOUNTER 2022-11-02 13:17 | Observation (INO) | payer OTHER, SELFPAY ==
[2022-11-02] VITALS (28 sets, daily range): BP systolic 115–140; BP diastolic 77–101; PULSE 80–115; O2SAT 97–100; BMI 52.2
[2022-11-02] MEDS: BETAMETHASONE SOD PHOS/ACETATE 30 MG/5 ML VIAL 12 MG IM (14:20)
[2022-11-02] MEDS: NIFEdipine 30 MG TAB.ER.24 PO ×2 (14:26→15:53)
--- NOTE | 2022-11-02 15:04 | OBADM ---
This patient, Tia Barth, admitted to the OB room Labor/Delivery/Recovery 102 for observation. Patient/family oriented to hospital policies and general routines including ID bracelet, bed and alarms, visiting hours, pain management, procedures, bathroom and other care routines, personal items, smoking policy, room service/diet, and visiting hours. Patient/Family are encouraged to report perceived risks to care and to ask questions if they do not understand what they are told or what they should do.
[2022-11-02] MEDS: LACTATED RINGERS 1,000 ML 999 ML IV CONT (16:05)
[2022-11-02 16:36] LABS: Hematocrit 35.6 % (37.0-47.0); Hemoglobin 11.6 g/dL (12.0-15.0); Mean Corpuscular HGB Conc 32.6 g/dl (32-36); Mean Corpuscular Hemoglobin 29.8 pg (26-34); Mean Corpuscular Volume 91.5 fl (80-100); Platelet Count Result 345 k/mm3 (150-375); Red Blood Count 3.89 M/mm3 (4.2-5.4); Red Cell Distribution Width 12.8 % (11.5-14.5); White Blood Count 11.9 K/mm3 (4.5-10.0)
[2022-11-02 16:57] LABS: Alanine Aminotransferase 23 U/L (6-35); Albumin Level 4.1 g/dL (3.5-5.1); Alkaline Phosphatase 173 U/L (38-126); Anion Gap 11 mmol/L (8-16); Aspartate Amino Transferase 22 U/L (14-36); Bilirubin,Total 0.5 mg/dL (0.2-1.3); Blood Urea Nitrogen 10 mg/dL (7-17); Calcium 10.2 mg/dL (8.4-10.2); Carbon Dioxide 17 mmol/L (22-30); Chloride 105 mmol/L (98-107); Estimated CRCL calculation 151 ml/min; Estimated Glomerular Filt Rate > 60; Glucose 86 mg/dL (65-110); Sodium 133 mmol/L (137-145); Uric Acid 7.1 mg/dL (2.5-7.5)
[2022-11-02 17:00] LABS: Potassium 4.1 mmol/L (3.4-5.0)
[2022-11-02 17:35] LABS: Appearance Urine Clear (Clear); Bacteria Urine None Seen /hpf; Bilirubin Urine Negative (Negative); Color Urine Yellow (Yellow); Glucose Urine UA Negative (Negative); Ketones Urine 1+ mg/dL (Negative); Leukocyte Esterase Ur Negative LEU/UL (Negative); Nitrate Urine Negative (Negative); Non Pathogenic Casts 0-2; Protein Urine Negative (Negative); RBC Urine 0-2 /hpf (0-2); Specific Grav Ur 1.009 (1.001-1.035); Squamous Epithelial Cell Urine None seen /hpf (Few); Urobilinogen Urine 0.2 mg/dL (<2.0); WBC Urine 0-5 /hpf; pH Urine 6.5 (5.0-9.0)
[2022-11-02 17:36] LABS: Add Urine Microscopic? YES
[2022-11-02 18:40] LABS: Creatinine Urine 49.1 mg/dL; Total Protein Urine Random 10 mg/dL
--- NOTE | 2022-11-03 17:58 | P.PNOB_ITS ---
OB - Triage/Final Diagnosis Visit Information Date of evaluation: 11/02/22 Reason for evaluation: threatened labor Comments/Additional reasons for admission: I have assessed the risk for this patient, Tia Barth, and determined that she would benefit from observation care. Evaluation Laboratory results: Laboratory Tests 11/02/22 16:16 WBC 11.9 H RBC 3.89 L Hgb 11.6 L Hct 35.6 L MCV 91.5 MCH 29.8 MCHC 32.6 RDW 12.8 Plt Count 345 MPV 10.0 Sodium 133 L Potassium 4.1 Chloride 105 Carbon Dioxide 17 L Anion Gap 11 BUN 10 Creatinine 0.60 L Estim Creat Clear Calc 151 Estimated GFR > 60 Glucose 86 Uric Acid 7.1 Calcium 10.2 Total Bilirubin 0.5 AST 22 ALT 23 Alkaline Phosphatase 173 H Total Protein 8.0 Albumin 4.1 Urine Color Yellow Urine Appearance Clear Urine pH 6.5 Ur Specific [place] 1.009 Urine Protein Negative Urine Glucose (UA) Negative Urine Ketones 1+ H Ur Blood (Man) Non-hemolyzed trace Urine Nitrate Negative Urine Bilirubin Negative Urine Urobilinogen 0.2 Leukocyte Esterase Rfl Negative Urine RBC 0-2 Urine WBC 0-5 Ur Squamous Epith Cells None seen Urine Bacteria None seen Urine Casts 0-2 U Random Total Protein 10 Urine Creatinine 49.1 Protein/Creat Ratio 2 0.20 Vital signs: Vital Signs - 24 hr 11/02/22 18:01 Pulse Rate 109 H Blood Pressure 130/80
== END 2022-11-02 18:33 | disposition home or self-care (01) ==
PROVIDERS: Admitting Provider Obstetrics & Gynecology; Referring Provider Advanced Practice Midwife; Visit Provider Obstetrics & Gynecology
DX: O47.03 False labor before 37 completed weeks of gestation, third trimester (principal); Z3A.35 35 weeks gestation of pregnancy
CPT/HCPCS: 36415; 80053; 81001; 82570; 84156; 84550; 85027; 96372; A9270; G0378; G0379; J0702; J7120

== ENCOUNTER 2022-11-02 22:28 | Inpatient (IN) | payer OTHER, SELFPAY ==
--- NOTE | 2022-11-02 22:50 | PC.NURSE ---
Dr Duran called via literary writer and is informed of pt arrival and SVE with pain rating 8/10 and being seen earlier in the day with betamethasone administered and procardia XL. Orders for LR bolus and that patient may have fentanyl 50mg QH for pain.
[2022-11-02 23:16] VITALS: BP 136/81; PULSE 124
[2022-11-02] MEDS: LACTATED RINGERS 1,000 ML 999 ML IV CONT (23:29)
[2022-11-02 23:31] VITALS: BP 129/79; PULSE 122
[2022-11-02] MEDS: fentaNYL CITRATE INJ (*CRX) 100 MCG/2 ML VIAL 50 MCG IV PUSH (23:34)
[2022-11-02 23:46] VITALS: BP 135/86; PULSE 119
[2022-11-03] VITALS (214 sets, daily range): BP systolic 108–146; BP diastolic 50–96; PULSE 97–180; RESP 17–19; TEMP 36.2–37.4; O2SAT 74–100; BMI 52.2
[2022-11-03] MEDS: LACTATED RINGERS 1,000 ML 999 ML IV CONT (00:18)
[2022-11-03] MEDS: fentaNYL CITRATE INJ (*CRX) 100 MCG/2 ML VIAL 50 MCG IV PUSH ×2 (00:43→02:23)
[2022-11-03] MEDS: LACTATED RINGERS 1,000 ML 200 ML IV CONT (01:30)
--- NOTE | 2022-11-03 01:42 | PC.NURSE ---
Dr Duran called via sql report writer and informed that patient is requesting something to stop her contractions, that she got procardia 30 XL less than 12 hours ago and that her pulse rate has been 110s-120s, contractions every 2-6min and patient has had 2L LR and 2 doses of fentanyl 50mcg. Orders to administer terbutaline 0.25mg once
[2022-11-03] MEDS: TERBUTALINE SULFATE 1 MG/ML VIAL 0.25 MG SUB-Q (01:48)
--- NOTE | 2022-11-03 03:50 | WPDANESEPPF ---
Anes - Initial Pre Proc Eval Procedure: Labor epidural Date/Time: 11/03/22 03:50 Surgeon: Mario Duran MD Pre Op Diagnosis: Labor pain Pre Op Diagnosis: Contractions Patient Data Age: 32 Gender: F Height: Weight: Last Vital Signs Pulse 141 H 11/03/22 03:49 BP 130/82 11/03/22 03:49 Pulse Ox 99 11/03/22 03:48 Allergies Allergy/AdvReac Type Severity Reaction Status Date / Time No Known Allergies Allergy Verified 07/26/22 08:56 Home Medications Medication Instructions Recorded Confirmed Type vit no.95-ferrous 1 tablet PO DAILY 10/22/20 11/02/22 History fumarate 28 mg-folic acid 800 mcg tablet () aspirin 81 mg tablet 81 mg PO DAILY 11/02/22 11/02/22 History famotidine 20 mg tablet (Pepcid) 20 mg PO DAILY 11/02/22 11/02/22 History ferrous sulfate 325 mg (65 mg 325 mg PO DAILY 11/02/22 11/02/22 History iron) tablet (Iron (ferrous sulfate)) Laboratory Tests 11/03/22 03:42 RPR Pending Patient hx anesthesia problems: none Family hx anesthesia problems: none Results Review: All pre-operative results and documents have been reviewed as part of the pre-operative evaluation. [facility]LY [facility] Past Medical History Medical History Cholecystectomy planned PIH ( induced hypertension) Family History Family History Father Diabetes mellitus FH: CABG (coronary artery bypass surgery) Gastric paresis Mother Diabetes mellitus Hypertension Grandparent Diabetes mellitus Social History Social History Smoking status: Never smoker Substance use: never Spiritual care concerns: No Anes - Eval Final PreProcedure Day of Procedure 11/03/22 03:50 Patient weight: obese Heart: tachycardia Lungs: clear to auscultation Neurological: alert and oriented Results Review: All pre-operative results and documents have been reviewed as part of the pre-operative evaluation. Informed Consent: The patient's anesthetic plan and its attendant risks and benefits were discussed with the patient/family/POA. Questions were solicited and answers provided to the satisfaction of the patient/family/POA.
--- NOTE | 2022-11-03 04:10 | WPDANESEPN ---
Anes - Epidural Procedure Note Date/Time: 11/03/22 04:10 Consent: I have discussed with the patient/family/POA, the placement of an epidural catheter and the use of epidural narcotic/local anesthetic for labor analgesia and/or postoperative pain management, including associated potential risks, benefits, complications and side effects. I have discussed alternative methods of labor analgesia and/or postoperative pain management. The patient/family/POA, understand(s) and wish(es) to proceed with epidural narcotic/local anesthetic for labor analgesia and/or postoperative pain management. Time-Out: A pre-procedural Time-Out was completed immediately before starting the procedure and confirmed: Patient Identification, Site, Procedure, Patient Position and the Availability of Requisite Equipment. Clinical Indications: Labor pain Epidural Insertion Note Patient position: sitting Skin prep: chlorhexidine and sterile drape Needle: 18g Tuohy-Schliff Catheter: 20g Unstyleted Technique: Loss of resistance. Level of insertion: L3/4 Catheter skin yesenia (cm): 12 Length in epidural space (cm): 6 Skin anesthesia: lidocaine 1% Test dose: 1.5% Lidocaine with 1:[id number] Epi, negative for subarachnoid Inj and negative for intravascular Inj Time of test dose: 03:59 Observations: tolerated well Complications: none
--- NOTE | 2022-11-03 04:20 | LDADM ---
This patient, Tia Barth, was admitted to Labor/Delivery/Recovery 102 on 11/03/22 at 03:36. Plans for labor, pain management and were discussed with patient. Patient/family oriented to hospital policies and general routines including ID bracelet, bed and alarms, visiting hours, pain management, procedures, bathroom and other care routines, personal items, smoking policy, room service/diet and guest tray routines, infant security routines, and visiting hours. Patient/Family are encouraged to report perceived risks to care and to ask questions if they do not understand what they are told or what they should do. See OBIX for further documentation.
[2022-11-03] MEDS: AMPICILLIN 2 GM/NS 100 ML 2 GM/100 ML BAG IVPB (05:00)
[2022-11-03] MEDS: LACTATED RINGERS 1,000 ML 125 ML IV CONT (08:25)
[2022-11-03 08:31] LABS: Rapid Plasma Reagin Non-Reactive (NonReactive)
[2022-11-03] MEDS: AMPICILLIN 1 GM/NS 50 ML 1 GM/50 ML BAG IVPB ×2 (09:04→12:47)
--- NOTE | 2022-11-03 09:16 | PM.IMHP ---
H&P: HPI History of Present Illness Date/Time: 11/03/22 09:16 Chief Complaint: contractions, pt admitted over night for labor, SVE this am 4-5/90/-2 AROM, large amount of clear, odorless fluid, anticipate vaginal delivery. 36 weeks gestation, hx chronic HTN PMFSH Past Medical History Medical History Cholecystectomy planned PIH ( induced hypertension) Family History Family History Father Diabetes mellitus FH: CABG (coronary artery bypass surgery) Gastric paresis Mother Diabetes mellitus Hypertension Grandparent Diabetes mellitus Social History Social History Smoking status: Never smoker Substance use: never Lack of Transportation: No Lack of Food: Never True Current Housing: I Have Housing Concerned About Future Housing: No Difficulty Paying Gas/Electric Bills: No Difficulty Paying for Meds: No Currently Unemployed: No Education: Bachelor's Degree Difficulty w/ Childcare or Family Care: No Spiritual care concerns: No Meds Home Medications and Allergies Home Medications Medication Instructions Recorded Confirmed Type vit no.95-ferrous 1 tablet PO DAILY 10/22/20 11/02/22 History fumarate 28 mg-folic acid 800 mcg tablet () aspirin 81 mg tablet 81 mg PO DAILY 11/02/22 11/02/22 History famotidine 20 mg tablet (Pepcid) 20 mg PO DAILY 11/02/22 11/02/22 History ferrous sulfate 325 mg (65 mg 325 mg PO DAILY 11/02/22 11/02/22 History iron) tablet (Iron (ferrous sulfate)) Allergies Allergy/AdvReac Type Severity Reaction Status Date / Time No Known Allergies Allergy Verified 07/26/22 08:56 Vital Signs Vital Signs - 24 hr 11/02/22 23:16 11/02/22 23:31 11/02/22 23:46 Temperature Pulse Rate 124 H 122 H 119 H Respiratory Rate Blood Pressure 136/81 129/79 135/86 Pulse Oximetry Oxygen Delivery 11/03/22 00:01 11/03/22 00:31 11/03/22 00:46 Temperature Pulse Rate 117 H 116 H 122 H Respiratory Rate Blood Pressure 130/93 H 139/82 146/88 H Pulse Oximetry Oxygen Delivery 11/03/22 01:01 11/03/22 01:16 11/03/22 01:31 Temperature Pulse Rate 114 H 125 H 129 H Respiratory Rate Blood Pressure 140/87 142/94 H 138/91 H Pulse Oximetry Oxygen Delivery 11/03/22 01:46 11/03/22 01:48 11/03/22 01:53 Temperature Pulse Rate 125 H Respiratory Rate Blood Pressure 135/88 Pulse Oximetry 98 98 Oxygen Delivery 11/03/22 01:55 11/03/22 02:00 11/03/22 02:01 Temperature Pulse Rate 134 H Respiratory Rate Blood Pressure 138/78 Pulse Oximetry 100 97 Oxygen Delivery 11/03/22 02:05 11/03/22 02:10 11/03/22 02:25 Temperature Pulse Rate Respiratory Rate Blood Pressure Pulse Oximetry 95 100 97 Oxygen Delivery 11/03/22 02:30 11/03/22 02:35 11/03/22 02:40 Temperature Pulse Rate Respiratory Rate Blood Pressure Pulse Oximetry 100 100 100 Oxygen Delivery 11/03/22 02:45 11/03/22 02:50 11/03/22 02:55 Temperature Pulse Rate Respiratory Rate Blood Pressure Pulse Oximetry 98 98 99 Oxygen Delivery 11/03/22 03:00 11/03/22 03:05 11/03/22 03:10 Temperature Pulse Rate Respiratory Rate Blood Pressure Pulse Oximetry 98 98 99 Oxygen Delivery 11/03/22 03:15 11/03/22 03:20 11/03/22 03:25 Temperature Pulse Rate Respiratory Rate Blood Pressure Pulse Oximetry 100 98 99 Oxygen Delivery 11/03/22 03:30 11/03/22 03:48 11/03/22 03:49 Temperature Pulse Rate 141 H Respiratory Rate Blood Pressure 130/82 Pulse Oximetry 100 99 Oxygen Delivery 11/03/22 03:53 11/03/22 03:54 11/03/22 03:59 Temperature Pulse Rate 140 H Respiratory Rate Blood Pressure 143/86 H Pulse Oximetry 100 100 100
[2022-11-03] MEDS: OXYTOCIN 30 UNITS/NS 500 ML 30 UNITS/500 ML BAG IV CONT (09:32)
[2022-11-03] MEDS: BETAMETHASONE SOD PHOS/ACETATE 30 MG/5 ML VIAL 12 MG IM (09:34)
[2022-11-03] MEDS: LORATADINE 10 MG TABLET PO (10:14)
[2022-11-03] MEDS: diphenhydrAMINE HCl INJ 50 MG/ML VIAL IV PUSH (12:47)
--- NOTE | 2022-11-03 14:34 | PM.OBPRVD ---
OB - Delivery Note Procedure Delivery date: 11/03/22 Procedure: Events: Chronic Hypertension Delivery augmentation: Rupture of Membranes and Pitocin Delivery monitor: External FHT, External Uterine and Internal Uterine Route of delivery: Laceration Description: None Specimen: No Quantitative Blood Loss (ml): 55 Anesthesia type: Epidural Disposition: Floor Baby Date of : 11/03/22 Time of : 14:22 Weeks of gestation at delivery: 36 gender: Female Weight (pounds): 6 Weight (ounces): 14 presentation: vertex position: Left Occiput Anterior Placenta delivery description: Spontaneous Cord Vessel Description: 3 Vessels and Clamped/Cut score one minute: 8 score five minutes: 9 Narrative: mother and baby in stable condition
[2022-11-03] MEDS: OXYTOCIN 30 UNITS/NS 500 ML 30 UNITS/500 ML BAG 125 UNITS IV CONT (14:56)
[2022-11-03] MEDS: IBUPROFEN 600 MG TABLET PO (19:33)
[2022-11-04] MEDS: IBUPROFEN 600 MG TABLET PO ×2 (04:33→11:02)
[2022-11-04 05:33] LABS: Hematocrit 33.3 % (37.0-47.0); Hemoglobin 10.5 g/dL (12.0-15.0)
--- NOTE | 2022-11-04 07:34 | PM.OBPNVD ---
OB - PN: Subj Subjective Date/time seen: 11/04/22 07:34 s/p vaginal delivery day 1 OB - PN: Obj Data Labs 11/04/22 04:29 Labs: Laboratory Results - last 24 hr 11/03/22 11/04/22 03:42 04:29 Hgb 10.5 L Hct 33.3 L RPR Non-reactive OB - PN A/P Time Spent With Patient Time: Total time spent is greater than 50% in coordination of care (as documented) at patient's floor/unit and/or counseling patient: Review of Systems Review of Systems: All systems reviewed & are unremarkable except as noted in HPI and below Exam Const: General: cooperative, healthy appearing and comfortable Chest: Chest palpation & inspection: normal inspection of the chest Resp: Effort & Inspection: normal respiratory effort Cardio: Rate: regular rate Rhythm: regular rhythm GI: Other: soft Back/Spine/Pelvis: Back: no CVA tenderness Skin: General skin exam: normal color Extrem: Right lower extremity: normal to inspection Left lower extremity: normal to inspection
[2022-11-04 07:40] VITALS: BP 131/82; PULSE 91; RESP 16; TEMP 36.4; O2SAT 100
--- NOTE | 2022-11-04 07:54 | WPDANLDPN2 ---
Anes-Prog Note L&D Date/Time: 11/04/22 07:54 Comfortable throughout: labor and delivery Neuraxial method: epidural Epidural/Spinal procedure site: clean & non-tender Neuro status: Neuro function grossly intact. Cardiovascular status: normal Respiratory status: normal Airway patency: baseline Mental status: baseline Post-Op hydration status: normal Vital Signs: Last Vital Signs Temp 97.2 F L 11/03/22 23:00 Pulse 109 H 11/03/22 23:00 Resp 18 11/03/22 23:00 BP 131/78 11/03/22 23:00 Pulse Ox 99 11/03/22 17:00 O2 Del Method Room Air 11/03/22 04:18 Pain score (VAS): 0/10 I/O: Intake & Output 11/03/22 11/03/22 11/04/22 15:59 23:59 07:59 Intake Total 50 500 Output Total 55 Balance 50 445 Post-procedural complaints: none Patient feedback: Patient satisfied with anesthetic care.
--- NOTE | 2022-11-04 08:29 | PC.NURSE ---
[id number] Breast pump provided due to ineffective and bottle feeding for low blood sugars. Instructions given on cleaning, care, usage, that there should be no pain, pumping schedule for milk production, collection, and storage of human milk. Mother is encouraged to record pumping schedule on the feeding sheet. Patient was assessed for correct placement, flange size, to pump for comfort and nipple stretching/stimulation for adequate milk production every 3 hours (8 times in 24 hours) 1-2 times at night. Mother voiced understanding of the education shared along with mom and baby guide for additional resource information. Reported to the primary RN.
[2022-11-04] MEDS: MULTIVIT/MIN/PREN/FOL AC/IRON TABLET 1 TAB PO (08:46)
[2022-11-04] MEDS: DOCUSATE SODIUM 100 MG CAPSULE PO (08:46)
[2022-11-04 12:25] VITALS: BP 127/85; PULSE 101; RESP 18; TEMP 36.7; O2SAT 99
[2022-11-04 21:30] VITALS: BP 141/104; PULSE 95; RESP 20; TEMP 36.6
[2022-11-04 23:15] VITALS: BP 132/87; PULSE 105
[2022-11-05] MEDS: IBUPROFEN 600 MG TABLET PO (05:06)
[2022-11-05 07:55] VITALS: BP 128/83; PULSE 91; RESP 16; TEMP 36.8; O2SAT 99
[2022-11-05] MEDS: MULTIVIT/MIN/PREN/FOL AC/IRON TABLET 1 TAB PO (08:22)
[2022-11-05] MEDS: ACETAMINOPHEN 325 MG TABLET 650 MG PO ×2 (08:22→16:52)
--- NOTE | 2022-11-05 08:41 | PM.OBPNVD ---
OB - PN: Subj Subjective Date/time seen: 11/05/22 08:41 Patient comments: no complaints, pain well controlled and tolerating diet OB - PN: Obj Data Labs 11/04/22 04:29 OB - PN A/P Plan day: 2 Plan: routine care and discharge home Time Spent With Patient Time: Total time spent is greater than 50% in coordination of care (as documented) at patient's floor/unit and/or counseling patient: Exam Const: General: comfortable and no acute distress Resp: Effort & Inspection: normal respiratory effort Auscultation: no rales, no rhonchi and no wheezes Cardio: Rate: regular rate Heart sounds: no click, no murmurs and no rubs GI: GI Palp: Yes Soft to palpation and No Tenderness to palpation present (GI) Auscultation: normal bowel sounds Extrem: General: normal to inspection, no pedal edema and no calf tenderness
--- NOTE | 2022-11-05 08:42 | P.DS_ITS ---
DS: Admitting Diagnosis Discharge Date November 05, 2022 Admitting Diagnosis term DS: Discharge Diagnosis Discharge Diagnosis (1) Term delivered: Code(s): O80 - Encounter for full-term uncomplicated delivery Status: Acute OB - DS: Summary OB Procedures : None OB Procedures Intrapartum: Spontaneous Vag Delivery OB Procedures: : None Time Spent with Patient Time attestation: Total time spent providing and/or coordinating discharge services: Discharge Plan Discharge Discharging Clinician: aMrio Duran Patient Disposition: Home, Self-Care Activity: pelvic rest Diet: regular Patient Instructions: Antibiotic Form Stand Alone Forms: General Discharge Information Follow-up/Referrals: Mario Duran MD [Physician] - Discharge Medications: Continued PNV cmb#95-ferrous fumarate-FA [] 28 mg iron- 800 mcg Tablet 1 tablet PO DAILY famotidine [Pepcid] 20 mg Tablet 20 mg PO DAILY ferrous sulfate [Iron (ferrous sulfate)] 325 mg (65 mg iron) Tablet 325 mg PO DAILY aspirin 81 mg Tablet 81 mg PO DAILY Date of admission: 11/03/22 03:36 Primary Care Provider: PHYSICIAN,YARN EXAMINER Admitting Provider: Mario Duran Attending physician on admission: Mario Duran Condition: Stable
[2022-11-06 09:22] VITALS: BP 137/88; PULSE 82; RESP 18; TEMP 36.7; O2SAT 100
== END 2022-11-05 17:30 | disposition home or self-care (01) | DRG 560 ==
LOC: ANHLDR 11-03 03:44 → ANHOB2 11-03 17:11
PROVIDERS: Advanced Practice Midwife; Admitting Provider Obstetrics & Gynecology; Visit Provider Obstetrics & Gynecology
DX: O60.14X0 Preterm labor third trimester with preterm delivery third trimester, not applicable or unspecified (principal); O16.4 Unspecified maternal hypertension, complicating childbirth; Z37.0 Single live birth; Z3A.36 36 weeks gestation of pregnancy; O99.824 Streptococcus B carrier state complicating childbirth
CPT/HCPCS: 36415; 80053; 81001; 82570; 84156; 84550; 85014; 85018; 85027; 86592; 86850; 86900; 86901; 96372; 96374; A9270; G0378; G0379; J0290; J0702; J1200; J2590; J2795; J3010; J3105; J7120

== ENCOUNTER 2024-12-21 09:54 | Emergency (ER) | payer OTHER, SELFPAY ==
[2024-12-21 10:04] VITALS: BP 129/86; PULSE 100; RESP 16; TEMP 36.8; O2SAT 100
--- NOTE | 2024-12-21 10:10 | ED.URI ---
HPI - URI/Sore Throat General Chief Complaint: Upper Respiratory Infection Stated Complaint: CONGESTION/BODY ACHES/CHEST HEAVY Time Seen by Provider: 12/21/24 10:10 Source: patient Mode of arrival: ambulatory Limitations: no limitations History of Present Illness HPI Narrative: Tia is a 34-year-old female patient presenting to the clinic today with complaints of nonproductive cough, nasal congestion, body aches, and feeling as though her chest is heavy. She reports symptoms started yesterday and gradually gotten worse. Has not taken any medications for her symptoms. She denies any chest pain. Rates pain 4/10 currently. Related Data Home Medications ?Medication ?Instructions ?Recorded ?Confirmed ?Last Taken ?Type vit no.95-ferrous 1 tablet PO DAILY 10/22/20 11/02/22 11/01/22 History fumarate 28 mg-folic acid 800 mcg tablet () aspirin 81 mg tablet 81 mg PO DAILY 11/02/22 11/02/22 11/01/22 History famotidine 20 mg tablet (Pepcid) 20 mg PO DAILY 11/02/22 11/02/22 11/01/22 History ferrous sulfate 325 mg (65 mg 325 mg PO DAILY 11/02/22 11/02/22 11/01/22 History iron) tablet (Iron (ferrous sulfate)) Allergies Allergy/AdvReac Type Severity Reaction Status Date / Time No Known Allergies Allergy Verified 12/21/24 10:10 Review of Systems Review of Systems: Pertinent positives per HPI. Patient denies any fever, chills, rash, headache, visual changes, dizziness, shortness of breath, chest pain, palpitations, nausea, vomiting, diarrhea, constipation, abdominal pain, or any urinary issues. [facility] Past Medical History Medical History Cholecystectomy planned PIH ( induced hypertension) Family History Family History Father Diabetes mellitus FH: CABG (coronary artery bypass surgery) Gastric paresis Mother Diabetes mellitus Hypertension Grandparent Diabetes mellitus Social History Social History Smoking status: Never smoker Substance use: never Lack of Transportation: No Lack of Food: Never True Current Housing: I Have Housing Concerned About Future Housing: No Difficulty Paying Gas/Electric Bills: No Difficulty Paying for Meds: No Currently Unemployed: No Education: Bachelor's Degree Difficulty w/ Childcare or Family Care: No Spiritual care concerns: No Comments At the time of my signature, I reviewed and agree with the nursing past medical, surgical, social, and family history. There is no relevant family history pertinent to the patient complaint. Exam Narrative: General: Well-developed, morbidly obese, in no apparent distress Head: Normocephalic, atraumatic Eyes: Pupils equally round and reactive to light bilaterally, EOM intact, sclera and conjunctive clear, no discharge, lids normal Ears: TMs intact and congested, ear canals clear, no drainage, grossly hearing normal. Nose: Nares patent, clear nasal discharge, mild inflammation, no sinus tenderness. Mouth: Oral pharynx red without lesions or masses, good dentition, MMM. Postnasal drip Neck: Supple, trachea midline, no enlargement of anterior or posterior cervical nodes, no thyroid masses or goiter palpable. Cardio: Regular rate and rhythm, s1 and s2 normal, no murmur appreciated. Resp: Clear to auscultation bilaterally, no rhonchi, rales, wheezing or rubs Course Course Emergency Course: Portions of this record may have been created with voice recognition software. Level of Care: Express Care Visit Vital Signs Vital signs: Vital Signs Temperature 36.8 C 12/21/24 10:04 Pulse Rate 100 12/21/24 10:04 Respiratory Rate 16 12/21/24 10:04 Blood Pressure 129/86 12/21/24 10:04 Pulse Oximetry 100 12/21/24 10:04 Temperature 36.8 C 12/21/24 10:04 Pulse Rate 100 12/21/24 10:04 Respiratory Rate 16 12/21/24 10:04 Blood Pressure 129/86 12/21/24 10:04 Pulse Oximetry 100 12/21/24 10:04 Vital signs reviewed MDM - URI/Sore Throat MDM Narrative Medical decision making narrative: At the time of visit patient is resting comfortably on the exam table. Patient appears to be nontoxic. Complaints of nonproductive cough, nasal congestion, body aches, and feeling as though her chest is heavy. She reports symptoms started yesterday and gradually gotten worse. Has not taken any medications for her symptoms. She denies any chest pain. Rates pain 4/10 currently. On exam patient has clear nasal drainage, postnasal drip, bilateral ear congestion, lung sounds are clear and rates regular rate and rhythm. COVID and flu test was ordered. Labs: COVID and influenza testing was negative in the clinic today. Plan: I suspect patient has URI/viral syndrome. Work note was given. Supportive measures were discussed with the patient and they voiced understanding discharge instructions and agrees to treatment plan. Return precautions reviewed Differential Diagnosis Differential diagnosis: Likely upper respiratory infection, otitis media, sinusitis, viral infection, bronchitis, influenza, pharyngitis and other (COVID) Lab Data Labs: Lab Results 12/21/24 Range/Units 10:03 POC Influenza A Ag Negative (Negative) POC Influenza B Ag Negative (Negative) POC SARS CoV-2 Ag Negative (Negative) Discharge Plan Discharge Clinical Impression: Viral infection Upper respiratory infection Qualifiers: URI type: unspecified URI Qualified Code(s): J06.9 - Acute upper respiratory infection, unspecified Patient Disposition: Home Condition: Stable Instructions: Antibiotic Form, Viral Syndrome (ED), Cold Symptoms (ED) Additional Instructions: COVID and influenza testing was negative in the clinic today. May take DayQuil/NyQuil for cold/flu symptoms. Increase fluids and stay well hydrated May take Tylenol or motrin as directed on bottle for pain/fever May use Flonase 1 spray in each nare daily May take OTC antihistamines such as Zyrtec or Claritin daily as directed on bottle May apply Vicks vapor rub to chest to open sinuses Sinus rinses for congestion Cepacol spray, cough drops, throat lozenges, warm tea with honey/lemon, gargle salt water to soothe throat BRAT diet for diarrhea Clear liquids x 24 hours then advance as tolerated for nausea/vomiting Go to the ED if you develop a worsening in your condition- high fever not controlled by Tylenol or Motrin, dehydration, weakness, lethargy, shortness of breath, or chest pain. Follow up with your PCP in 3-5 days if symptoms persist. Patient Language: Mexican Prescriptions: No Action PNV no.95-ferrous fumarate-FA [] 28 mg iron- 800 mcg Tablet 1 tablet PO DAILY famotidine [Pepcid] 20 mg Tablet 20 mg PO DAILY ferrous sulfate [Iron (ferrous sulfate)] 325 mg (65 mg iron) Tablet 325 mg PO DAILY aspirin 81 mg Tablet 81 mg PO DAILY Follow-up/Referrals: Michelle,Ligia Martin APRN [Primary Care Provider, Unknown] Stand Alone Forms: Work/School Release IP Time of Disposition: 10:26 Quality NIHSS Nursing Documentation ED NIHSS nursing documentation: reviewed/agree
[2024-12-21 10:28] LABS: EDCOVIDSCREEN Negative (Negative); EDINFLUASCREEN Negative (Negative); EDINFLUBSCREEN Negative (Negative)
== END 2024-12-21 10:34 | disposition home or self-care (01) ==
PROVIDERS: Emergency Provider Nurse Practitioner Family; PCP Nurse Practitioner
DX: B34.9 Viral infection, unspecified (principal); J06.9 Acute upper respiratory infection, unspecified; Z20.822 Contact with and (suspected) exposure to COVID-19
CPT/HCPCS: 87426; 87804; 99212; G0463

== ENCOUNTER 2025-02-09 14:19 | Emergency (ER) | payer OTHER, SELFPAY ==
[2025-02-09 14:31] VITALS: BP 129/81; PULSE 104; RESP 16; TEMP 36.9; O2SAT 97
[2025-02-09 14:37] LABS: EDSTREPNEGPOS1 Positive (Negative)
--- NOTE | 2025-02-09 14:40 | ED_ITS ---
HPI - URI/Sore Throat General Chief Complaint: Upper Respiratory Infection Stated Complaint: SORE THROAT Time Seen by Provider: 02/09/25 14:32 Source: patient Mode of arrival: ambulatory Limitations: no limitations History of Present Illness HPI Narrative: Tia is a 34-year-old female patient presenting to the clinic today with complaints of sore throat nasal congestion x1 day. She reports her symptoms sta rted last night. Denies any fevers, chills, body aches. States that she has a lot of pain with swallowing. Rates pain currently a 10/19. Has taken TheraFlu tea and Mucinex. No known strep exposure. MD elicited complaint: sore throat and nasal congestion Related Data Allergies Allergy/AdvReac Type Severity Reaction Status Date / Time No Known Allergies Allergy Verified 12/21/24 10:10 Review of Systems Review of Systems: Pertinent positives per HPI. Patient denies any fever, chills, rash, headache, visual changes, dizziness, cough, shortness of breath, chest pain, palpitations, nausea, vomiting, diarrhea, constipation, abdominal pain, or any urinary issues. [facility] Past Medical History Medical History Cholecystectomy planned PIH ( induced hypertension) Family History Family History Father Diabetes mellitus FH: CABG (coronary artery bypass surgery) Gastric paresis Mother Diabetes mellitus Hypertension Grandparent Diabetes mellitus Social History Social History Smoking status: Never smoker Substance use: never Lack of Transportation: No Lack of Food: Never True Current Housing: I Have Housing Concerned About Future Housing: No Difficulty Paying Gas/Electric Bills: No Difficulty Paying for Meds: No Currently Unemployed: No Education: Bachelor's Degree Difficulty w/ Childcare or Family Care: No Spiritual care concerns: No Comments At the time of my signature, I reviewed and agree with the nursing past medical, surgical, social, and family history. There is no relevant family history pertinent to the patient complaint. Exam Narrative: General: Well-developed, morbidly obese, in no apparent distress Head: Normocephalic, atraumatic Eyes: Pupils equally round and reactive to light bilaterally, EOM intact, sclera and conjunctive clear, no discharge, lids normal Ears: TMs intact and congested, ear canals clear, no drainage, grossly hearing normal. Nose: Nares patent, clear nasal discharge, mild inflammation, no sinus tenderness. Mouth: Oral pharynx red with bilateral tonsillar enlargement and exudate to tonsils without masses, good dentition, MMM. Neck: Supple, trachea midline, enlargement of anterior cervical nodes, no thyroid masses or goiter palpable. Cardio: Regular rate and rhythm, s1 and s2 normal, no murmur appreciated. Resp: Clear to auscultation bilaterally, no rhonchi, rales, wheezing or rubs Course Course Emergency Course: Portions of this record may have been created with voice recognition software. Level of Care: Express Care Visit Vital Signs Vital signs: Vital Signs Temperature 36.9 C 02/09/25 14:31 Pulse Rate 104 H 02/09/25 14:31 Respiratory Rate 16 02/09/25 14:31 Blood Pressure 129/81 02/09/25 14:31 Pulse Oximetry 97 02/09/25 14:31 Temperature 36.9 C 02/09/25 14:31 Pulse Rate 104 H 02/09/25 14:31 Respiratory Rate 16 02/09/25 14:31 Blood Pressure 129/81 02/09/25 14:31 Pulse Oximetry 97 02/09/25 14:31 Vital signs reviewed MDM - URI/Sore Throat MDM Narrative Medical decision making narrative: At the time of visit patient is resting comfortably on the exam table. Patient appears to be nontoxic. Complaints of sore throat nasal congestion x1 day. She reports her symptoms started last night. Denies any fevers, chills, body aches. States that she has a lot of pain with swallowing. Rates pain currently a 7/10. Has taken TheraFlu tea and Mucinex. No known strep exposure. On exam patient has bilateral TMs congestion, clear nasal drainage with mild inflammation the anterior turbinates, or pharynx red with bilateral tonsillar enlargement with exudate to bilateral tonsils and anterior cervical lymphadenopathy, lung sounds are clear, heart rates regular rate and rhythm. Strep test was ordered. Labs: Strep test was positive in the clinic today. Plan: Patient has strep pharyngitis. Prescription for amoxicillin was sent to the pharmacy. Patient declining needed work note. Supportive measures were discussed with the patient and they voiced understanding discharge instructions and agrees to treatment plan. Return precautions reviewed Differential Diagnosis Differential diagnosis: Likely upper respiratory infection, otitis media, sinusitis, viral infection, bronchitis, influenza, pharyngitis and other (COVID) Lab Data Labs: Lab Results 02/09/25 Range/Units 14:23 POC Grp A Strep Screen Positive (Negative) Discharge Plan Discharge Clinical Impression: Strep pharyngitis Patient Disposition: Home Condition: Stable Instructions: Antibiotic Form, Strep Throat (ED) Additional Instructions: Strep test was positive in the clinic today. Take prescription medications only as prescribed-amoxicillin Change your toothbrush in 24 hours after initiation of the antibiotics Increase fluids and stay well hydrated May take Tylenol or motrin as directed on bottle for pain/fever May use Flonase 1 spray in each nare daily May take OTC antihistamines such as Zyrtec or Claritin daily as directed on bottle May apply Vicks vapor rub to chest to open sinuses Sinus rinses for congestion Cepacol spray, cough drops, throat lozenges, warm tea with honey/lemon, gargle salt water to soothe throat BRAT diet for diarrhea Clear liquids x 24 hours then advance as tolerated for nausea/vomiting Go to the ED if you develop a worsening in your condition- high fever not controlled by Tylenol or Motrin, dehydration, weakness, lethargy, shortness of breath, or chest pain. Follow up with your PCP in 3-5 days if symptoms persist. Patient Language: [place] Prescriptions: New amoxicillin 875 mg tablet 875 mg PO Q12H 10 Days Qty: 20 0RF Follow-up/Referrals: UNKNOWN,DOCTOR [Primary Care Provider] Time of Disposition: 14:33 Quality NIHSS Nursing Documentation ED NIHSS nursing documentation: reviewed/agree
== END 2025-02-09 14:39 | disposition home or self-care (01) ==
PROVIDERS: Emergency Provider Nurse Practitioner Family
DX: J02.0 Streptococcal pharyngitis (principal)
CPT/HCPCS: 87880; 99213; G0463